=== PATIENT | female | born 1950 | race Caucasian/White ===

== ENCOUNTER 2017-05-29 10:40 | Emergency (ER) | payer OTHER ==
[~2017-05-29] VITALS: Ht 144.8 cm; Wt 67.6 kg
[2017-05-29 12:29] LABS: BASOPHIL % 0.3 % (0-2); PLATELET COUNT 274 x10^3mcL (130-400)
[2017-05-29 12:40] LABS: CALCIUM 9.1 mg/dL (8.5-10.1); CARBON DIOXIDE 26.1 mmol/L (21-32); CHLORIDE SERUM 96 mmol/L (98-107); CREATININE SERUM 0.9 mg/dL (0.6-1.0); GFR1 > 60 mL/min; GLUCOSE SERUM 439 mg/dL (74-106); POTASSIUM SERUM 4.2 mmol/L (3.5-5.1); SODIUM SERUM 132 mmol/L (136-145)
[2017-05-29 14:01] VITALS: BP 150/74
== END 2017-05-29 14:01 | disposition home or self-care (01) ==
LOC: ED 10:40
PROVIDERS: Emergency Medicine
DX: E11.65 Type 2 diabetes mellitus with hyperglycemia (principal); Z79.84 Long term (current) use of oral hypoglycemic drugs
CPT/HCPCS: 82962; J1815; J7030

== ENCOUNTER 2018-12-07 13:00 | Inpatient (IN) | payer OTHER, MEDICAID ==
[~2018-12-07] VITALS: Ht 157.5 cm; Wt 73.5 kg
[2018-12-07 13:23] VITALS: Ht 157.5 cm; Wt 73.5 kg
--- NOTE | 2018-12-07 14:15 | NUR ---
PT BIB SELF C/O RIGHT UPPER QUADRANT PAIN RADIATING TO HER BACK X4 DAYS. DENIES N/V/D. PT DENIES UTI SYMPTOMS. PT HAS HX OF DIABETES. PT IN POSTIION OF COMFORT AWAITING MSE. PT ON FULL CM, GOWNED, RESPS E/U, SKIN IS PINK, WARM AND DRY.
[2018-12-07 14:40] LABS: BASOPHIL % 0.5 % (0-2); PLATELET COUNT 352 x10^3mcL (130-400); RED CELL DISTRIBUTION WIDTH 12.6 % (11.5-14.5)
[2018-12-07 14:48] LABS: ALBUMIN 3.6 g/dL (3.4-5.0); BILIRUBIN TOTAL 0.2 mg/dL (0.20-1.00); CALCIUM 10.5 mg/dL (8.5-10.1); CARBON DIOXIDE 28.5 mmol/L (21-32); CREATININE SERUM 1.2 mg/dL (0.6-1.0); POTASSIUM SERUM 3.1 mmol/L (3.5-5.1); TOTAL PROTEIN, SERUM 8.6 g/dL (6.4-8.2)
--- NOTE | 2018-12-07 14:52 | NUR ---
LAB NOTICED CRITICAL RESULT, GLUCOSE: 50. DR KELLER MADE AWARE. PROVIDED PT 1 CUP OF ORANGE JUICE. RECHECK BLOOD SUGAR IN 15 MINUTES.
--- NOTE | 2018-12-07 14:54 | NUR ---
PT TAKEN TO CT VIA [facility].
[2018-12-07] MEDS ORDERED: METFORMIN HCL1000 MG PO (15:46)
[2018-12-07] MEDS ORDERED: HUMULIN 70/303 ML SC (15:47)
--- NOTE | 2018-12-07 15:53 | NUR ---
DR KELLER NOTIFIED OF BLOOD GLUCOSE OF 58. PER DR KELLER, KEEP PT NPO AND RECHECK IN AN HOUR
--- NOTE | 2018-12-07 17:41 | NUR ---
PT AMBULATORY TO RESTROOM WITH STEADY GAIT
[2018-12-07 18:03] LABS: PHOSPHOROUS 2.3 mg/dL (2.5-4.9)
[2018-12-07 18:04] LABS: CHOLESTEROL/HDL RATIO 2.1
--- NOTE | 2018-12-07 18:24 | NUR ---
GAVE REPORT TO TESSIE LANDEROS WHO WILL RESUME CARE OF PATIENT.
[2018-12-07 18:56] VITALS: BP 116/42
--- NOTE | 2018-12-07 19:05 | NUR ---
RECEIVED PT FROM ER, PT ADMIT FOR APPENDICITIS, PT IS A/O X4, VERBAL RESPONSIVE, ABLE TO TELL WHAT SHE NEEDS. LUNG SOUND CLEAR BILATERAL, NO COUGH, NO SOB, PT DENY ANY CHEST PAIN, BOWEL SOUND PRESENT ALL 4 QUADRANTS, NO DISTENTION, C/O RIGHT UPPER QUADRANT PAIN, INCREASE PAIN WHILE TOUCH, PEDAL PULSE PRESENT BOTH FEET, NO EDEMA, IV AT RIGHT AC, NO LEAKING, NO INFILTRATION. ALL ADLS ASSIST, ALL NEED MET, CALL LIGHT IN REACH, WILL CONTINUE TO MONITOR.
--- NOTE | 2018-12-07 19:35 | NUR ---
COMMENCED IV INFUSION OF D5 NS AT 100 ML/HR. CARE ENDORSED TO NIGHT NURSE.
--- NOTE | 2018-12-07 19:50 | NUR ---
REC'D PT FROM DAY NURSE. PT RESTING IN BED. AAOX4, SPEECH CLEAR, FOLLOWS COMMANDS. MED SURG, NO TELE. DENIES CP, DIZZINESS, OR PALPITATIONS. MED SURG, NO TELE. DENIES CP, DIZZINESS, OR PALPITATIONS. NO EDEMA NOTED. DENIES RESP DISTRESS OR SOB. BREATHING EVEN/UNLABORED ON RA. ABD SOFT/ROUND. REPORTS ABD PAIN AND TENDERNESS TO LATERAL R MID ABD 8/10. DENIED PAIN MEDS SHE SAYS SHE HAS ALREADY TAKEN TOO MUCH. PT NPO FOR APPE IN AM, PT VERBALIZED UNDERSTANDING. VOIDING FREELY. AMBULATORY. SKIN INTACT. IV TO R UPPER ARM PATENT AND INFUSING, SITE WNL. CALL LIGHT WITHIN REACH, BED AT LOWEST POSITION. WILL CONTINUE TO MONITOR.
--- NOTE | 2018-12-07 20:30 | NUR ---
SPOKE TO DR. WISE. MADE AWARE THERE IS NO ORDER TO OBTAIN CONSENT FOR APPENDECTOMY IN AM. ALSO MADE AWARE OF PT'S DRY COUGH.
[2018-12-07 22:05] VITALS: BP 126/34
--- NOTE | 2018-12-07 22:41 | NUR ---
YESSENIA WITH CODEINE GIVEN FOR COUGH. REC'D ORDER TO OBTAIN CONSENT FOR LAP APPE, POSSIBLE OPEN. SPOKE TO DR. WEST WHO STATED DR. EDDY HAD ALREADY SPOKEN TO THE PT IN ED. PT CONFIRMED THIS. SURGICAL CONSENT SIGNED. PT DID NOT HAVE ANY QUESTIONS.
--- NOTE | 2018-12-08 01:02 | NUR ---
PT AWAKE AND RESTING IN BED WATCHING TV. C/O COUGH, NONPRODUCTIVE. BREATHING EVEN/UNLABORED ON RA. NO ROBITUSSIN DUE AT THIS TIME. CALL LIGHT WITHIN REACH, BED AT LOWEST POSITION. WILL CONTINUE TO MONITOR.
--- NOTE | 2018-12-08 01:25 | NUR ---
DR. WISE MADE AWARE AM LABS NEED TO BE ORDERED FOR APPE IN AM.
[2018-12-08 03:55] LABS: UA SPECIFIC GRAVITY <=1.005 (1.005-1.035); microscopic required? YES; urine erythrocyte NEGATIVE (NEGATIVE)
[2018-12-08 05:49] VITALS: BP 147/52
--- NOTE | 2018-12-08 05:57 | NUR ---
PT AWAKE AND RESTING IN BED. C/O NONPRODUCTIVE COUGH. ROBITUSSIN GIVEN. ALSO REPORTS R LATERAL MID ABD PAIN BUT TOLERABLE AND DENIED PAIN MEDS. PT HAS LAP APPE TODAY @ 0900. CHECKLIST COMPLETED. CHG WIPES DONE. SURGICAL CONSENT SIGNED. BS 201, 6 UNITS REG INSULIN HELD D/T NPO. D5NS INFUSING @ 100 ML/HR. DR. WISE MADE AWARE, STATES OK TO HOLD COVERAGE. NO SIGNIFICANT CHANGES DURING SHIFT. CALL LIGHT WITHIN REACH, BED AT LOWEST POSITION. WILL ENDORSE TO DAY NURSE.
--- NOTE | 2018-12-08 07:30 | NUR ---
RECEIVED PATIENT RESTING IN BED. PATIENT C/O OF PAIN 02/15, BUT BEARABLE. NO RESPIRATORY DISTRESS NOTED, PATIENT ON ROOM AIR, LUNG SOUNDS CLEAR BILATERALLY. NO EDEMA NOTED. ABDOMEN ROUND AND TENDER. D5NS INFUSING TO JIHAN AT 100ML/HR, IV SITE PATENT, NO REDNESS,SWELLING OR PAIN NOTED. PATIENT IS NPO, FOR LAPAROSCOPIC APPENDECTOMY. INSTRUCTED PATIENT TO CALL FOR ASSISTANCE WHEN NEEDED, CALL LIGHT WITHIN REACH, BED IN LOW POSITION FOR SAFETY PRECAUTION. WILL CONTINUE TO MONITOR FOR CHANGES.
--- NOTE | 2018-12-08 08:30 | NUR ---
PATIENT WENT DOWN FOR APPE PROCEDURE. IV TO JIHAN 20G SALINE LOCK. CONSENT FORM SIGNED AND PLACED IN CHART.
--- NOTE | 2018-12-08 10:45 | NUR ---
PATIENT ARRIVED FROM SURGERY S/P LAPAROSCOPIC APPENDECTOMY, PATIENT C/O OF PAIN WITH MOVEMENT, BUT STATES SHES OKAY AT THIS TIME. VITAL SIGNS STABLE BP:152/54 HR: 70 RR:16 PULSE OX: 96% 2L TEMP:96.9. PATIENT HAS X3 INCISION WITH STABLES COVERED WITH BANDAID, NO DRAINAGE NOTED. OSIRIS HAS A SMALL INCISION FROM VERRIS NEEDLE COVERED WITH SMALL BANDAID. EBL: 5ML. INSTRUCTED PATIENT TO CALL IF ANY ASSISTANCE IS NEEDED. CALL LIGHT WITHIN REACH. BED IN LOW POSITION, SIDE RAILS X2 FOR SAFETY PRECAUTION. WILL CONTINUE TO MONIOTOR FOR CHANGES.
[2018-12-08 11:14] LABS: BASOPHIL % 0.3 % (0-2); PLATELET COUNT 274 x10^3mcL (130-400); RED CELL DISTRIBUTION WIDTH 12.3 % (11.5-14.5)
[2018-12-08 11:15] LABS: CALCIUM 8.6 mg/dL (8.5-10.1); CARBON DIOXIDE 24.5 mmol/L (21-32); POTASSIUM SERUM 5.1 mmol/L (3.5-5.1)
[2018-12-08 16:15] VITALS: BP 144/62
--- NOTE | 2018-12-08 18:30 | NUR ---
PATIENT IS RESTING IN BED, PATIENT DENIES PAIN AT THIS TIME. NO RESP DISTRESS NOTED, PATIENT ON 2L NC. INCENTIVE SPIROMETER AT BEDSIDE. ABDOMINAL INCISION X3 CDI, NO DRAINAGE NOTED. NS IV INFUSING TO JIHAN AT 100ML/HR, IV SITE CDI, NO REDNESS, SWELLING OR PAIN. NO ACUTE CHANGES THROUGH OUT SHIFT, PATIENT IS STABLE. CALL LIGHT WITHIN REACH, BED IN LOW POSITION. WILL ENDORSE REPORT TO NIGHT NURSE.
--- NOTE | 2018-12-08 19:27 | NUR ---
RECIEVED PATIENT AT START OF SHIFT AWAKE, A/O X4. POLISH SPEAKING ONLY. KAREN LANDEROS PRESENT TO TRANSLATE. PATIENT DENIES PAIN BUT REPORTS A COUGH. BREATH SOUNDS ARE DIMINISHED AT BILATERAL BASES. NO SOB NOTED ON 2L NC. PATIENT ENCOURAGED TO USE INCENTIVE SPIROMETER AND SPLINT ABDOMINAL INCISIONS. 4 BANDAIDS NOTED ON ABDOMEN, CLEAN DRY AND INTACT. ABDOMEN SOFT, BOWEL SOUNDS ACTIVE. PATIENT HAS ALREADY HAD A BM AFTER HER SURGERY THIS MORNING. IV IS INFUSING WITHOUT ERYTHEMA OR INFILTRATION. BED LOCKED AND IN LOWEST POSITION. CALL LIGHT AND BEDSIDE TABLE WITHIN REACH. WILL CONTINUE TO MONITOR.
[2018-12-08 21:25] VITALS: BP 113/55
--- NOTE | 2018-12-08 22:15 | NUR ---
PATIENT REQUESTED ROBITUSSIN FOR HER COUGH. ADMINISTERED PER EMAR.
--- NOTE | 2018-12-09 00:05 | NUR ---
PATIENT REQUESTED TO HAVE HER IV FLUIDS STOPPED. SHE INSISTED SHE CAN STAY HYDRATED DRINKING WATER ORALLY. PATIENT EDUCATED ON BENEFITS OF ADDITIONAL HYDRATION. PATIENT INSISTED TO REMOVE FLUIDS. PATIENT IS NOW SALINE LOCKED.
--- NOTE | 2018-12-09 04:20 | NUR ---
PATIENT REPORTED TROUBLE SLEEPING DUE TO COUGH. ROBITTUSIN ADMINISTERED AGAIN PER EMAR. WILL CONTINUE TO MONITOR.
--- NOTE | 2018-12-09 06:09 | NUR ---
PATIENT REQUESTED SOMETHING TO SPLINT HER ABDOMEN. ABDOMINAL BINDER PROVIDED.
[2018-12-09 06:17] LABS: BASOPHIL % 0.3 % (0-2); PLATELET COUNT 287 x10^3mcL (130-400); RED CELL DISTRIBUTION WIDTH 12.8 % (11.5-14.5)
[2018-12-09 06:21] VITALS: BP 126/49
[2018-12-09 06:26] LABS: CALCIUM 8.8 mg/dL (8.5-10.1); CARBON DIOXIDE 23.9 mmol/L (21-32); CHLORIDE SERUM 109 mmol/L (98-107); CREATININE SERUM 0.8 mg/dL (0.6-1.0); GFR1 > 60 mL/min; GLUCOSE SERUM 118 mg/dL (74-106); MAGNESIUM 1.7 mg/dL (1.8-2.4); PHOSPHOROUS 2.8 mg/dL (2.5-4.9); POTASSIUM SERUM 4.4 mmol/L (3.5-5.1); SODIUM SERUM 142 mmol/L (136-145)
--- NOTE | 2018-12-09 07:00 | NUR ---
NO FURTHER SIGNIFICANT EVENTS. WILL ENDORSE CRAE TO MORNING NURSE.
--- NOTE | 2018-12-09 07:38 | NUR ---
RECEIVED IN NO DISTRESS. AWAKE, ALERT AND ORIENTED. NO C/O PAIN OR DISCOMFORT AT THIS TIME. VS WNL. CALL LIGHT WITHIN REACH. WILL CONTINUE WITH PLAN OF CARE.
[2018-12-09 09:25] VITALS: BP 135/42
--- NOTE | 2018-12-09 10:33 | NUR ---
C/O PAIN AT THE INCISION SITE AND ABD. MEDICATED WITH NORCO PO. PT ENCOURAGED TO AMBULATE TOLERATED.
--- NOTE | 2018-12-09 11:15 | NUR ---
AMBULATED TO HALLWAYS AND TOLERATED WELL, NO ACUTE DISTRESS NOTED.
--- NOTE | 2018-12-09 14:31 | NUR ---
RESTING IN NO DISTRESS. FAMILY AT BEDSIDE. NO C/O PAIN AT THIS TIME. WAS MEDICATED FOR DRY COUGH EARLIER WITH FAIR RELIEF. WILL CONTINUE TO MONITOR.
--- NOTE | 2018-12-09 15:36 | NUR ---
C/O PAIN TO LLQ, MEDICATED WITH NORCO
[2018-12-09 18:11] VITALS: BP 133/43
--- NOTE | 2018-12-09 18:14 | NUR ---
AMBULATING ON THE HALLWAYS IN NO DISTRESS, FAMILY AT BEDSIDE. NO C/O PAIN AT THIS TIME. PT MEDICATED FOR DRY COUGH PER PRN.
--- NOTE | 2018-12-09 19:21 | NUR ---
REMAINS IN NO DISTRESS. AWAKE AND ALERT. FAMILY AT BEDSIDE. NO C/O PAIN AT THIS TIME. CALL LIGHT WITHIN REACH. WILL BE ENDORSED TO INCOMING SHIFT.
--- NOTE | 2018-12-09 20:00 | NUR ---
PT. AWAKE, ALERT, ORIENTED X4, DENIES HEADACHE OR DIZZINESS. SPEECH CLEAR. BREATH SOUNDS W/ SOME EXPIR. WHEEZING NOTED. SOME FINE CRACKLES TO BLL. RESP. EVEN, SLIGHTLY LABORED. PT. ENCOURAGED TO USE I.S. PT. STATED THAT SHE DOES NOT WANT TO USE THE I.S AND DOES NOT LIKE IT. THE BENEFITS FOR USE EXPLAINED. TRACE EDMA NOTED TO BLE. PEDAL PULSES MODERATE. ABD. SOFT AND ROUND, BOWEL SOUNDS ACTIVE. ABD. PAIN 5-6/10. ABD. BINDER IN PLACE. IVF NS RESTARTED ORDERED. NEW IV STARTED BY RELIEVE NURSE, 20 TO RFA. CALL LIGHT WITHIN REACH.
--- NOTE | 2018-12-09 21:23 | NUR ---
PT. GIVEN PRN NORCO FOR C/O ABD. PAIN, 03/18. WILL MONITOR.
[2018-12-09 21:36] VITALS: BP 111/63
--- NOTE | 2018-12-10 01:44 | NUR ---
PT. REQUESTED ROBITUSSIN FOR COUGH DURING MY BREAK. MEDICATION GIVEN TO PATIENT BY OTHER LICENSED NURSE. PT. NOTED TO BE W/ EYES CLOSED. WILL CONTINUE TO MONITOR. CALL LIGHT WITHIN REACH.
--- NOTE | 2018-12-10 05:54 | NUR ---
PT. C/O ABD. PAIN AND RECEIVED PRN NORCO. NOW DOZING. IVF INFUSING WELL. ABD,. BINDER IN-SITU. CALL LIGHT WITHIN REACH. WILL ENDORSE PT. CARE TO INCOMING NURSE.
[2018-12-10 06:37] VITALS: BP 131/52
[2018-12-10 06:55] LABS: BASOPHIL % 0.3 % (0-2); PLATELET COUNT 287 x10^3mcL (130-400); RED CELL DISTRIBUTION WIDTH 12.7 % (11.5-14.5)
--- NOTE | 2018-12-10 07:49 | NUR ---
RECEIVED SITTING AT THE EDGE OF THE PAIN. IN NO RESP. DISTRESS. VS STABLE. NO C/O PAIN OR DISCOMFORT. IVF INFUSING WELL AND SITE CLEAR. CALL LIGHT WITHIN REACH. WILL CONTINUE WITH PLAN OF CARE.
[2018-12-10 08:10] LABS: CALCIUM 8.8 mg/dL (8.5-10.1); CARBON DIOXIDE 20.1 mmol/L (21-32); CHLORIDE SERUM 107 mmol/L (98-107); CREATININE SERUM 0.7 mg/dL (0.6-1.0); GFR1 > 60 mL/min; GLUCOSE SERUM 196 mg/dL (74-106); POTASSIUM SERUM 4.4 mmol/L (3.5-5.1); SODIUM SERUM 140 mmol/L (136-145)
[2018-12-10] MEDS ORDERED: LEVAQUIN750 MG PO (08:25)
[2018-12-10 09:29] VITALS: BP 123/52
--- NOTE | 2018-12-10 10:32 | NUR ---
MEDICATED WITH ROBITUSSIN FOR DRY COUGH. PT ENCOURAGED TO TAKE DEEP BREATHE AND CONT. USING I.S WHILE AWAKE.VERBALIZED UNDERSTANDING.
[2018-12-10 11:58] VITALS: BP 123/52
--- NOTE | 2018-12-10 13:34 | NUR ---
PT DC'D HOME IN NO RESP. DISTRESS. AWAKE, ALERT AND ORIENTED. VS STABLE. NO C/O PAIN OR DISCOMFORT AT THE TIME OF DC. HL REMOVED AND SITE CLEAR. DC INSTRUCTIONS REVIEWED WITH PT AND FAMILY. RX GIVEN. SKIN HIEU TO WOUND DRY AND CLEAN. PT INSTRUCTED TO KEEP THE SITE CLEAN AT ALL TIMES. INSRTUCTED TO NOTIFY A DOCTOR OF ANY S/S OF INFECTION. PT/FAMILY VERBALIZED UNDERSTANDING. PERSONAL BELONGINGS TAKEN HOME.
== END 2018-12-10 13:34 | disposition home or self-care (01) | DRG 341 ==
LOC: ED 13:00 → MU 17:29
PROVIDERS: Emergency Medicine; Surgery; ADMIT General Practice
PROC: 0DTJ4ZZ Resection of Appendix, Percutaneous Endoscopic Approach (ICD-10-PCS; principal; 2018-12-08 09:00)
DX: K35.80 Unspecified acute appendicitis (principal); N17.0 Acute kidney failure with tubular necrosis; E11.649 Type 2 diabetes mellitus with hypoglycemia without coma; E11.65 Type 2 diabetes mellitus with hyperglycemia; E83.42 Hypomagnesemia; E83.39 Other disorders of phosphorus metabolism; E87.6 Hypokalemia; E83.52 Hypercalcemia; E78.5 Hyperlipidemia, unspecified; Z79.84 Long term (current) use of oral hypoglycemic drugs; Z79.4 Long term (current) use of insulin; Z90.710 Acquired absence of both cervix and uterus; Z90.722 Acquired absence of ovaries, bilateral
CPT/HCPCS: 82962; 83880; 94150; J0330; J0696; J1170; J1815; J1956; J2175; J2250; J2405; J2704; J3010; J3475; J3480; J3490; J7030; J7042; Q0092

== ENCOUNTER 2019-03-09 12:42 | Inpatient (IN) | payer OTHER, MEDICAID ==
[~2019-03-09] VITALS: Ht 157.5 cm; Wt 67.7 kg
[~2019-03-09 12:42] MED LIST: HUMULIN 70/303 ML SC; LEVAQUIN750 MG PO; METFORMIN HCL1000 MG PO
[2019-03-09 14:34] LABS: BASOPHIL % 0.5 % (0-2); PLATELET COUNT 366 x10^3mcL (130-400); RED CELL DISTRIBUTION WIDTH 12.9 % (11.5-14.5)
[2019-03-09 14:48] LABS: CALCIUM 11.1 mg/dL (8.5-10.1); CARBON DIOXIDE 30.8 mmol/L (21-32); CHLORIDE SERUM 86 mmol/L (98-107); CREATININE SERUM 2.8 mg/dL (0.6-1.0); GFR1 18 mL/min; GLUCOSE SERUM 148 mg/dL (74-106); POTASSIUM SERUM 3.1 mmol/L (3.5-5.1); SODIUM SERUM 133 mmol/L (136-145)
[2019-03-09 14:58] LABS: ALBUMIN 3.8 g/dL (3.4-5.0); ALKALINE PHOSPHATASE 78 U/L (46-116); ALT/SGPT 15 U/L (14-59); AST/SGOT 13 U/L (15-37); BILIRUBIN TOTAL 0.32 mg/dL (0.20-1.00)
[2019-03-09 15:55] LABS: microscopic required? NO
[2019-03-09 16:04] LABS: urine erythrocyte NEGATIVE (NEGATIVE)
[2019-03-09] MEDS ORDERED: NOVOLOG100 U/ML (17:46)
[2019-03-09] MEDS ORDERED: HYDROCHLOROTH12.5 M2 PO (17:46)
[2019-03-09] MEDS ORDERED: LIPI10 PO (17:46)
[2019-03-09] MEDS ORDERED: LEVOTHYROXIN0.025 M2 PO (17:46)
[2019-03-09] MEDS ORDERED: OYSTER SHELL C500 M2 (17:47)
[2019-03-09] MEDS ORDERED: METFORMIN HYDR500 M1 (17:47)
[2019-03-09] MEDS ORDERED: SIMVASTATIN10 M1 (17:47)
[2019-03-09 17:55] LABS: MAGNESIUM 3.5 mg/dL (1.8-2.4); PHOSPHOROUS 2.2 mg/dL (2.5-4.9)
[2019-03-09 17:59] LABS: CHOLESTEROL/HDL RATIO 2.3
[2019-03-09 18:02] LABS: T3 TOTAL 0.64 ng/mL
[2019-03-09 18:20] VITALS: BP 146/87
[2019-03-09 18:20] LABS: FREE T4 1.52 ng/dL (0.76-1.46); FREE THYROXINE INDEX 4.6 ug/dL (1.4-4.5); T4(THYROXINE) 11.5 ug/dL (4.7-13.3)
[2019-03-09 18:26] VITALS: Ht 157.5 cm; Wt 67.7 kg
[2019-03-09 20:17] LABS: AMPHETAMINE QUAL UR NONE DETECTED (See below)
[2019-03-09 20:18] VITALS: BP 102/40
[2019-03-10 04:41] VITALS: BP 117/50
[2019-03-10 06:45] LABS: CARBON DIOXIDE 35.6 mmol/L (21-32); CREATININE SERUM 1.4 mg/dL (0.6-1.0); MAGNESIUM 2.6 mg/dL (1.8-2.4); PHOSPHOROUS 2.9 mg/dL (2.5-4.9)
[2019-03-10 07:09] LABS: BASOPHIL % 0.6 % (0-2); PLATELET COUNT 254 x10^3mcL (130-400); RED CELL DISTRIBUTION WIDTH 13.3 % (11.5-14.5)
[2019-03-10 09:41] VITALS: BP 115/52
[2019-03-10 14:31] VITALS: BP 137/48
[2019-03-10 18:31] VITALS: BP 135/55
[2019-03-10 20:04] VITALS: BP 153/72
[2019-03-11 05:24] VITALS: BP 141/50
[2019-03-11 07:48] LABS: CALCIUM 8.4 mg/dL (8.5-10.1); CARBON DIOXIDE 26.1 mmol/L (21-32); MAGNESIUM 2.1 mg/dL (1.8-2.4); PHOSPHOROUS 2.4 mg/dL (2.5-4.9); POTASSIUM SERUM 3.4 mmol/L (3.5-5.1)
[2019-03-11 08:23] LABS: BASOPHIL % 0.9 % (0-2); PLATELET COUNT 210 x10^3mcL (130-400); RED CELL DISTRIBUTION WIDTH 13.5 % (11.5-14.5)
[2019-03-11 09:47] LABS: LIPASE 231 IU/L (73-393)
[2019-03-11 09:50] VITALS: BP 128/65
[2019-03-11 09:50] LABS: AMYLASE 582 U/L (25-115)
[2019-03-11 12:25] VITALS: BP 106/73
[2019-03-11 16:36] VITALS: BP 129/53
[2019-03-11 20:41] VITALS: BP 123/56
[2019-03-12 05:11] VITALS: BP 106/85
[2019-03-12 08:05] LABS: CHLORIDE SERUM 110 mmol/L (98-107); SODIUM SERUM 144 mmol/L (136-145)
[2019-03-12 08:06] LABS: CALCIUM 8.8 mg/dL (8.5-10.1); CARBON DIOXIDE 22.1 mmol/L (21-32); CREATININE SERUM 0.6 mg/dL (0.6-1.0); GFR1 > 60 mL/min; GLUCOSE SERUM 196 mg/dL (74-106); MAGNESIUM 1.9 mg/dL (1.8-2.4); PHOSPHOROUS 2.6 mg/dL (2.5-4.9)
[2019-03-12 09:19] VITALS: BP 138/51
[2019-03-12 12:49] VITALS: BP 111/72
[2019-03-12] MEDS ORDERED: LISINOPRIL2.5 MG PO (13:27)
[2019-03-12] MEDS ORDERED: GLIMEPIRIDE2 M1 PO (13:28)
[2019-03-12] MEDS ORDERED: LANTUS SOLOS100 U/M1 SQ (13:34)
[2019-03-12 16:05] LABS: RED CELL DISTRIBUTION WIDTH 13.8 % (11.5-14.5)
[2019-03-12 16:09] LABS: BASOPHIL % 0.6 % (0-2)
[2019-03-12 16:17] VITALS: BP 111/72
[2019-03-12 16:18] LABS: PLATELET COUNT 126 x10^3mcL (130-400)
== END 2019-03-12 17:01 | disposition home or self-care (01) | DRG 640 ==
LOC: ED 12:42 → DU 16:43
PROVIDERS: Emergency Medicine; ADMIT Internal Medicine
DX: E86.0 Dehydration (principal); N17.0 Acute kidney failure with tubular necrosis; J20.9 Acute bronchitis, unspecified; E87.2 Acidosis; E11.65 Type 2 diabetes mellitus with hyperglycemia; E87.6 Hypokalemia; E83.39 Other disorders of phosphorus metabolism; E83.52 Hypercalcemia; N28.1 Cyst of kidney, acquired; E03.9 Hypothyroidism, unspecified; Z79.4 Long term (current) use of insulin; Z68.27 Body mass index [BMI] 27.0-27.9, adult; Z79.84 Long term (current) use of oral hypoglycemic drugs
CPT/HCPCS: 82962; 84439; 87804; J0696; J1815; J1885; J3480; J7030; J8597; Q0092; Q9967

== ENCOUNTER 2019-04-11 19:02 | Emergency (ER) | payer OTHER, MEDICAID ==
[~2019-04-11] VITALS: Ht 162.6 cm; Wt 68.0 kg
[~2019-04-11 19:02] MED LIST changes: +GLIMEPIRIDE2 M1 PO; +HYDROCHLOROTH12.5 M2 PO; +LANTUS SOLOS100 U/M1 SQ; +LEVOTHYROXIN0.025 M2 PO; +LIPI10 PO; +LISINOPRIL2.5 MG PO; +METFORMIN HYDR500 M1; +NOVOLOG100 U/ML; +OYSTER SHELL C500 M2; +SIMVASTATIN10 M1
[2019-04-11 19:08] VITALS: Ht 162.6 cm; Wt 68.0 kg
[2019-04-11 23:46] VITALS: BP 128/43
== END 2019-04-11 23:46 | disposition home or self-care (01) ==
LOC: ED 19:02
DX: S00.03XA Contusion of scalp, initial encounter (principal); S70.01XA Contusion of right hip, initial encounter; S80.01XA Contusion of right knee, initial encounter; E03.9 Hypothyroidism, unspecified; Z90.89 Acquired absence of other organs; Z90.710 Acquired absence of both cervix and uterus; W18.39XA Other fall on same level, initial encounter; Y93.89 Activity, other specified; Y92.89 Other specified places as the place of occurrence of the external cause; Y99.8 Other external cause status
CPT/HCPCS: J1885; Q0092

== ENCOUNTER 2019-07-28 10:41 | Emergency (ER) | payer OTHER, MEDICAID ==
[~2019-07-28] VITALS: Ht 149.9 cm; Wt 69.4 kg
[2019-07-28 10:44] VITALS: Ht 149.9 cm; Wt 69.4 kg
[2019-07-28 11:16] LABS: BASOPHIL % 0.4 % (0-2); PLATELET COUNT 319 x10^3mcL (130-400); RED CELL DISTRIBUTION WIDTH 13.7 % (11.5-14.5)
[2019-07-28 12:02] LABS: CARBON DIOXIDE 29.7 mmol/L (21-32); CREATININE SERUM 1.1 mg/dL (0.6-1.0); POTASSIUM SERUM 4.3 mmol/L (3.5-5.1)
[2019-07-28 12:03] LABS: ALBUMIN 4.1 g/dL (3.4-5.0); BILIRUBIN TOTAL 0.52 mg/dL (0.20-1.00)
[2019-07-28 12:05] LABS: TOTAL PROTEIN, SERUM 8.6 g/dL (6.4-8.2)
[2019-07-28 13:04] VITALS: BP 112/37
== END 2019-07-28 13:08 | disposition home or self-care (01) ==
LOC: ED 10:41
PROVIDERS: Emergency Medicine
DX: N13.2 Hydronephrosis with renal and ureteral calculous obstruction (principal); E11.9 Type 2 diabetes mellitus without complications; E03.9 Hypothyroidism, unspecified; Z90.89 Acquired absence of other organs; Z90.710 Acquired absence of both cervix and uterus
CPT/HCPCS: 36415; J3010; Q0162

== ENCOUNTER 2019-07-29 15:54 | Emergency (ER) | payer OTHER, MEDICAID ==
[~2019-07-29] VITALS: Ht 152.4 cm; Wt 77.1 kg
[2019-07-29 15:58] VITALS: BP 133/43; Ht 152.4 cm; Wt 77.1 kg
== END 2019-07-29 16:55 | disposition home or self-care (01) ==
LOC: ED 15:54
DX: N23 Unspecified renal colic (principal); E11.9 Type 2 diabetes mellitus without complications; E03.9 Hypothyroidism, unspecified
CPT/HCPCS: J1885

== ENCOUNTER 2020-05-06 21:37 | Inpatient (IN) | payer OTHER, MEDICAID ==
[~2020-05-06] VITALS: Ht 134.6 cm; Wt 59.0 kg
[2020-05-06 22:41] LABS: RED CELL DISTRIBUTION WIDTH 13.6 % (11.5-14.5)
[2020-05-06 22:44] LABS: BASOPHIL % 0 % (0-2); PLATELET COUNT 127 x10^3mcL (130-400)
[2020-05-06 23:20] LABS: BILIRUBIN DIRECT 0.36 mg/dL (0.0-0.2); BILIRUBIN TOTAL 0.5 mg/dL (0.20-1.00); CALCIUM 6.2 mg/dL (8.5-10.1); CARBON DIOXIDE 16.5 mmol/L (21-32); POTASSIUM SERUM 3.4 mmol/L (3.5-5.1)
[2020-05-06 23:25] LABS: ALBUMIN 2.3 g/dL (3.4-5.0)
[2020-05-06 23:26] LABS: CREATININE SERUM 5.4 mg/dL (0.6-1.0)
[2020-05-07 00:21] LABS: microscopic required? NO
[2020-05-07 00:37] LABS: CREATININE UR 162.7 mg/dL (0.60-1.80)
[2020-05-07 00:51] LABS: UA SPECIFIC GRAVITY >=1.030 (1.005-1.035); urine erythrocyte NEGATIVE (NEGATIVE)
[2020-05-07 01:14] LABS: FREE T4 1.62 ng/dL (0.76-1.46); FREE THYROXINE INDEX 2.6 ug/dL (1.4-4.5); T4(THYROXINE) 6.9 ug/dL (4.7-13.3)
[2020-05-07 01:49] VITALS: BP 48/23
[2020-05-07 02:12] LABS: T3 TOTAL 0.59 ng/mL
== END 2020-05-07 05:57 | disposition expired | DRG 637 ==
LOC: ED 21:37 → IC 23:05 → ED 23:05 → DU 23:05 → IC 23:06
PROVIDERS: Student in an Organized Health Care Education/Training Program; ADMIT Internal Medicine; ATTEND Internal Medicine
DX: E11.649 Type 2 diabetes mellitus with hypoglycemia without coma (principal); G93.41 Metabolic encephalopathy; E87.1 Hypo-osmolality and hyponatremia; D68.9 Coagulation defect, unspecified; R65.10 Systemic inflammatory response syndrome (SIRS) of non-infectious origin without acute organ dysfunction; N17.0 Acute kidney failure with tubular necrosis; E03.9 Hypothyroidism, unspecified; R74.0 Nonspecific elevation of levels of transaminase and lactic acid dehydrogenase [LDH]; D69.6 Thrombocytopenia, unspecified; I46.9 Cardiac arrest, cause unspecified; E78.00 Pure hypercholesterolemia, unspecified; Z90.49 Acquired absence of other specified parts of digestive tract; Z79.4 Long term (current) use of insulin
CPT/HCPCS: 82962; 83880; 84439; G0378; G0480; J0171; J3490; Q0092; U0003-CS